=== PATIENT | male | born 1950 | race Caucasian/White ===

== ENCOUNTER 2022-12-15 02:49 | Emergency (ER) | payer MEDICARE, SELFPAY ==
[2022-12-15 02:50] VITALS: BP 146/75; PULSE 57; RESP 16; TEMP 36.6; O2SAT 94; BMI 30.7
--- NOTE | 2022-12-15 03:05 | PC.NURSE ---
Patient to ED by EMS after having left lower abdominal and groin pain that started yesterday morning. The pain eased some yesterday, but tonight he got up to use the bathroom and the pain returned, it was so bad that he did not think he would be able to make it to the car to come to the ED, so EMS was called. He denies any urinary symptoms, initially denied any strenuous activity prior to the pain starting, but then stated that he was moving things and putting them away for the winter, also throwing bails of hay over a fence. He was given 25mcg of Fentanyl en route which only minimally helped his pain. He is still rating pain a 9/10 in the left groin
--- NOTE | 2022-12-15 03:15 | ED.ABDPAIN1 ---
HPI - Abdominal Pain General Chief Complaint: Abdominal Pain Stated Complaint: ABD PAIN Time Seen by Provider: 12/15/22 02:58 Source: patient and family () Mode of arrival: ambulance History of Present Illness HPI narrative: This 72-year-old male is brought to the emergency department by EMS accompanied by his . The patient's states that he started complaining of some left inguinal area pain yesterday during the day. It waxed and waned during the day and became worse at night. The patient went to bed and awakened his to call EMS. She states that he was too nauseated to come down the stairs for her to bring him to the hospital herself. The patient does have a history of diabetes, hypertension, hypercholesterolemia. He denies any heavy lifting or strenuous activity although reported to the nurse doing his intake that he was throwing kvng of hay into the forearm villalobos yesterday morning. He denies a history of kidney stones. He does have low back pain but states that this is chronic in nature. He denies any chest pain or shortness of breath. He has not had a fever. He denies any urinary frequency urgency or dysuria. He has pain in the left inguinal region that is worse with movement of the left leg. He has no specific leg pain. He has no calf pain or swelling. He denies any generalized abdominal pain, vomiting or diarrhea. He received 25 mcg of fentanyl by EMS with mild improvement of his pain. Related Data Allergies Allergy/AdvReac Type Severity Reaction Status Date / Time No Known Drug Allergies Allergy Verified 12/15/22 02:54 Review of Systems ROS Status of ROS 10 or more systems reviewed and unremarkable except as noted in history and below Exam Narrative Exam Narrative: Nurses note and vital signs reviewed and patient is borderline hypoxic with pulse ox of 94% on RA and has elevated blood pressure at 14/75 with mils bradycardia at 57bpm General: The patient appears well and in no apparent distress. Patient is resting comfortably on cart. Skin: Warm, dry, no pallor noted. There is no rash noted. Head: Normocephalic, atraumatic Eye: Normal conjunctiva, no drainage, EOMI. PERRL Ears, Nose, Mouth, and Throat: oral mucosa is moist. Cardiovascular: Regular Rate and Rhythm S1S2, no murmurs, rubs or gallops appreciated. radial, brachial, femoral and dorsalis pedis pulses are brisk and equal bilaterally Respiratory: Patient is in no distress, scattered expiratory wheezing noted in all lung villalobos, no rhonchi or rales appreciated Back: non-tender, no CVA tenderness bilaterally to percussion. GI: Normal bowel sounds, tenderness to palpation in right inguinal region without palpable hernia, pulsatile mass or other notable abnormality, pain increased with sitting up and flexion of left knee- at which point, I feel a small bulge that may be consistent with an inguinal hernia. - normal genital exam without skin breakdown or signs of necrotizing fascititis Musculoskeletal: The patient has no evidence of calf tenderness, no pitting edema, symmetrical pulses noted bilaterally Neurological: A&O x4, normal speech Psychiatric: Cooperative Constitutional Vital Signs, click to edit/add: Last Vital Signs Temp 97.9 F 12/15/22 02:50 Pulse 57 L 12/15/22 02:50 Resp 16 12/15/22 02:50 BP 146/75 H 12/15/22 02:50 Pulse Ox 94 L 12/15/22 02:50 O2 Del Method Room Air 12/15/22 02:50 Course Vital Signs Vital signs: Vital Signs Temperature 97.9 F 12/15/22 02:50 Pulse Rate 57 L 12/15/22 02:50 Respiratory Rate 16 12/15/22 02:50 Blood Pressure 146/75 H 12/15/22 02:50 Pulse Oximetry 94 L 12/15/22 02:50 Oxygen Delivery Method Room Air 12/15/22 02:50 Temperature 97.9 F 12/15/22 02:50 Pulse Rate 57 L 12/15/22 02:50 Respiratory Rate 16 12/15/22 02:50 Blood Pressure 146/75 H 12/15/22 02:50 Pulse Oximetry 94 L 12/15/22 02:50 Oxygen Delivery Method Room Air 12/15/22 02:50 MDM - Abdominal Pain MDM Narrative Medical decision making narrative: 72-year-old male with a history of chronic low back pain who has had back surgery in the past and has been recently exposed rinsing increasing back pain is brought to the emergency department by EMS accompanied by his for evaluation of left inguinal area pain. The pain is made worse by movement of his left leg or by sitting up. The pain started yesterday during the day. He did report to the nurse during his intake that he was throwing kvng of hay around yesterday morning. The pain was waxing and waning throughout the day then became worse at night associated with nausea. He denies any urinary symptoms and does not have a history of kidney stones. He denies any chest pain or shortness of breath. He does have a history of hypertension, diabetes and is a tobacco user. His femoral pulses were brisk and equal bilaterally, he also had equal dorsalis pedis pulses and no abdominal bruits or other concerns for aortic dissection. He had been given fentanyl by EMS prior to arrival with mild clinical improvement such that he was able to participate in the physical exam. He had tenderness in the inguinal area which was made worse with movement of the leg or sitting up. Abdomen is soft and nondistended. He was medicated with a milligram of Dilaudid and Zofran and IV fluids. EKG done upon arrival is a sinus bradycardia at 51 bpm. Routine labs are reviewed. He is a normal white count and hemoglobin. He has a normal lactic acid, normal d-dimer, normal troponin. Electrolytes are normal with the exception of a mildly elevated glucose. Urinalysis was negative for acute findings. CT scan Of the abdomen and pelvis with IV contrast was ordered and is included in the body of this report. It shows mild constipation and degenerative changes in the lumbar spine with diverticulosis but no acute diverticulitis, atherosclerosis but no aneurysm or dissection. The results of the labs, EKG and CT scan were discussed with the patient and his . He has had episodes of sciatica in the past and at this point I suspect that his pain is radicular in nature from his lumbar spine. This would account for the worsening pain with movement of sitting up and when he flexes his knee and hip. I did review his [facility] report and it shows no recent activity. He will be discharged home with Rx for Percocet, Parafon forte for muscle spasm and colace. He will follow up with his PCP, he may benefit from an MRi to further evaluate his lumbar region. Medical Records Medical records narrative: The [address] [address] [address] Scan Report Draft Patient: Felisa Noble MR#: [id number] : 1950 Acct:[id number] Age/Sex: 72 / M ADM Date: 12/15/22 Loc: ER Attending Dr: Ordering Physician: Esther Greene Date of Service: 12/15/22 Procedure(s): CT abdomen pelvis w con Accession Number(s): [id number] cc: ~ [address] [address] Patient Name: FELISA NOBLE MRN: [id number] date: 1950 Sex: M Assigned Patient Location: ER Current Patient Location: ER Accession/Order Number: [id number] Exam Date: 12/15/2022 04:14 Report Date: 12/15/2022 05:32 At the request of: ESTHER GREENE Procedure: CT abdomen pelvis w con EXAM: CT abdomen pelvis w con HISTORY: LLQ abd pain. COMPARISON: None. TECHNIQUE: Images of the abdomen and pelvis obtained without contrast. FINDINGS: Lung bases are clear. No pleural or pericardial fluid. There is no evidence of adrenal mass or retroperitoneal lymphadenopathy. No obstructive uropathy. Renal enhancement is symmetrical. There are renal cysts incidentally noted bilaterally. Liver is fatty infiltrated. Portal vein is patent. Aortic atherosclerosis without aneurysm. There is no bowel obstruction or inflammation. No pneumatosis or pneumoperitoneum. The appendix is normal. There is no pelvic adenopathy or ascites. Prostate and bladder are age-appropriate. Severe sigmoid diverticulosis. There is a moderate volume of formed stool throughout the colon. No acute bony abnormality. Severe multilevel lumbar degenerative disc disease and facet arthropathy. Previous decompressive laminectomy between L3 and L5. CT/CT abdomen pelvis w con IMPRESSION: 1. Constipation may be present depending on clinical scenario. No evidence of bowel obstruction. 2. No additional acute abnormality in the abdomen/pelvis. 3. Chronic findings including aortic atherosclerosis and severe sigmoid diverticulosis. 4. Severe lumbar degenerative changes. Electronically authenticated by: ACACIA HALL Date: 12/15/2022 05:32 Lab Data Labs: Lab Results 12/15/22 12/15/22 Range/Units 03:10 05:25 WBC 7.1 (4.0-11.0) 10^3/uL RBC 5.43 (4.70-6.10) 10^6/uL Hgb 15.7 (14.0-18.0) g/dL Hct 48.3 (42.0-54.0) % MCV 89.0 (80.0-94.0) fL MCH 28.9 (25.9-34.0) pg MCHC 32.5 (29.9-35.2) g/dL RDW 13.8 (11.0-15.0) % Plt Count 153 (150-450) 10^3/uL MPV 11.2 (9.5-13.5) fL Neut % (Auto) 71.6 (43.0-75.0) % Lymph % (Auto) 17.0 L (20.5-60.0) % [place] % (Auto) 7.9 (1.7-12.0) % Eos % (Auto) 2.8 (0.9-7.0) % Baso % (Auto) 0.4 (0.2-2.0) % Neut # (Auto) 5.1 (1.4-6.5) 10^3/uL Lymph # (Auto) 1.2 (1.2-3.8) 10^3/uL [place] # (Auto) 0.6 (0.3-0.8) 10^3/uL Eos # (Auto) 0.2 (0.0-0.7) 10^3/uL Baso # (Auto) 0.0 (0.0-0.1) 10^3/uL Abs Immat Gran (auto) 0.02 (0.00-0.03) 10^3/uL Imm/Tot Granulo (auto) 0.3 (0.0-0.5) % D-Dimer 0.33 (<=0.59) mg/L FEU Sodium 134 L (136-145) mmol/L Potassium 3.8 (3.5-5.1) mmol/L Chloride 101 (98-107) mmol/L Carbon Dioxide 26.1 (21.0-32.0) mmol/L Anion Gap 10.7 BUN 19.0 H (7.0-18.0) mg/dL Creatinine 1.04 (0.70-1.30) mg/dL Est GFR ( Amer) >60 (>=60) Est GFR (Non-Af Amer) >60 (>=60) BUN/Creatinine Ratio 18.3 Glucose 166 H (74-106) mg/dL Lactate 2.0 (0.4-2.0) mmol/L Calcium 8.9 (8.5-10.1) mg/dL Total Bilirubin 0.8 (0.2-1.0) mg/dL AST 17 (15-37) U/L ALT 35 (16-63) U/L Alkaline Phosphatase 70 (46-116) U/L Troponin I High Sens 21.5 (4.0-76.1) pg/mL Total Protein 7.2 (6.4-8.2) g/dL Albumin 3.9 (3.4-5.0) g/dL Globulin 3.3 g/dL Albumin/Globulin Ratio 1.2 Urine Color Lt. yellow (YELLOW) Urine Clarity Clear (CLEAR) Urine pH 5.5 (5.0-9.0) Ur Specific [place] 1.010 (1.005-1.025) Urine Protein Negative (NEG/TRACE) mg/dL Urine Glucose (UA) >=1000 A (NEGATIVE) mg/dL Urine Ketones Negative (NEGATIVE) mg/dL Urine Occult Blood Negative (NEGATIVE) Urine Nitrite Negative (NEGATIVE) Urine Bilirubin Negative (NEGATIVE) Urine Urobilinogen 0.2 (0.2-1.0) EU/dL Ur Leukocyte Esterase Negative (NEGATIVE) Urine RBC 0-2 (0-2) #/HPF Urine WBC 0-2 A (NONE SEEN) #/HPF Ur Squamous Epith Cells Rare (NONE/RARE) #/LPF Urine Crystals None seen (None Seen) #/HPF Urine Bacteria Trace A (NONE SEEN) #/HPF Urine Casts None seen (NONE SEEN) #/LPF Urine Mucus None seen (NONE SEEN) Discharge Plan Discharge Chief Complaint: Abdominal Pain Clinical Impression: Left lumbar radiculopathy Patient Disposition: Home, Self-Care Time of Disposition Decision: 06:11 Condition: Good Instructions: Lumbar Radiculopathy (ED), Back Pain (ED) Stand Alone Forms: Portal Instructions Referrals: ASHLEY CROWLEY [Primary Care Provider] - 1 week
--- NOTE | 2022-12-15 03:16 | ECG_ITS ---
The [facility] Test Date: 2022-12-15 Pat Name: Girma Chowdhury Department: Room: - Gender: Male Public Address Announcer: : 1950 Requested By: [id number] Order Number: [id number] Reading MD: BRDOIE PHIPPS Measurements Intervals [place] Rate: 51 P: 68 SC: 188 QRS: 76 QRSD: 110 T: 61 QT: 460 QTc: 436 Interpretive Statements 1100 Sinus rhythm 9110 normal ECG No previous ECG available for comparison Electronically Signed On 12-15-2022 7:05:32 EDT by BRODIE PHIPPS
[2022-12-15] MEDS: 0.9 % SODIUM CHLORIDE 1,000 ML 125 ML IV (03:32)
[2022-12-15] MEDS: HYDROMORPHONE HCL 2 MG/ML VIAL 1 MG IV (03:32)
[2022-12-15] MEDS: ONDANSETRON PF 4 MG/2 ML VIAL IV (03:33)
[2022-12-15 03:35] LABS: Basophils Percent Auto 0.4 % (0.2-2.0); Eosinophils Absolute Auto 0.2 10^3/uL (0.0-0.7); Eosinophils Percent Auto 2.8 % (0.9-7.0); Hematocrit 48.3 % (42.0-54.0); Hemoglobin 15.7 g/dL (14.0-18.0); Immature Granulocytes Abs Auto 0.02 10^3/uL (0.00-0.03); Immature Granulocytes Pct Auto 0.3 % (0.0-0.5); Lymphocytes Absolute Auto 1.2 10^3/uL (1.2-3.8); Mean Corpuscular HGB Conc 32.5 g/dL (29.9-35.2); Mean Corpuscular Hemoglobin 28.9 pg (25.9-34.0); Mean Platelet Volume 11.2 fL (9.5-13.5); Monocytes Absolute Auto 0.6 10^3/uL (0.3-0.8); Monocytes Percent Auto 7.9 % (1.7-12.0); Neutrophils Absolute Auto 5.1 10^3/uL (1.4-6.5); Neutrophils Percent Auto 71.6 % (43.0-75.0); Platelet Count 153 10^3/uL (150-450); Red Blood Count 5.43 10^6/uL (4.70-6.10); Red Cell Distribution Width 13.8 % (11.0-15.0); White Blood Count 7.1 10^3/uL (4.0-11.0)
[2022-12-15 03:40] LABS: D Dimer 0.33 mg/L FEU (<=0.59)
[2022-12-15 03:47] VITALS: PULSE 51
[2022-12-15 03:47] LABS: Alanine Aminotransferase 35 U/L (16-63); Albumin Globulin Ratio 1.2; Albumin Level 3.9 g/dL (3.4-5.0); Alkaline Phosphatase 70 U/L (46-116); Anion Gap 10.7; Aspartate Amino Transferase 17 U/L (15-37); BUN Creatinine Ratio 18.3; Bilirubin Total 0.8 mg/dL (0.2-1.0); Calcium 8.9 mg/dL (8.5-10.1); Carbon Dioxide 26.1 mmol/L (21.0-32.0); Chloride 101 mmol/L (98-107); Estimated GFR (African America >60 (>=60); Estimated GFR (Non-African Ame >60 (>=60); Globulin 3.3 g/dL; Glucose 166 mg/dL (74-106); Potassium 3.8 mmol/L (3.5-5.1); Sodium 134 mmol/L (136-145); Total Protein 7.2 g/dL (6.4-8.2)
[2022-12-15 03:50] LABS: Troponin I High Sensitivity 21.5 pg/mL (4.0-76.1)
--- NOTE | 2022-12-15 04:01 | CT_ITS ---
The [address] [address] Patient Name: FELISA NOBLE MRN: [id number] date: 1950 Sex: M Assigned Patient Location: ER Current Patient Location: ER Accession/Order Number: [id number] Exam Date: 12/15/2022 04:14 Report Date: 12/15/2022 05:55 At the request of: DESIRAE MARKER Procedure: CT abdomen pelvis w con EXAM: CT abdomen pelvis w con HISTORY: LLQ abd pain. COMPARISON: None. TECHNIQUE: Images of the abdomen and pelvis obtained without contrast. FINDINGS: Lung bases are clear. No pleural or pericardial fluid. There is no evidence of adrenal mass or retroperitoneal lymphadenopathy. No obstructive uropathy. Renal enhancement is symmetrical. There are renal cysts incidentally noted bilaterally. Liver is fatty infiltrated. Portal vein is patent. Aortic atherosclerosis without aneurysm. There is no bowel obstruction or inflammation. No pneumatosis or pneumoperitoneum. The appendix is normal. There is no pelvic adenopathy or ascites. Prostate and bladder are age-appropriate. Severe sigmoid diverticulosis. There is a moderate volume of formed stool throughout the colon. No acute bony abnormality. Severe multilevel lumbar degenerative disc disease and facet arthropathy. Previous decompressive laminectomy between L3 and L5. CT/CT abdomen pelvis w con IMPRESSION: 1. Constipation may be present depending on clinical scenario. No evidence of bowel obstruction. 2. No additional acute abnormality in the abdomen/pelvis. 3. Chronic findings including aortic atherosclerosis and severe sigmoid diverticulosis. 4. Severe lumbar degenerative changes. Electronically authenticated by: ACACIA HALL Date: 12/15/2022 05:55
[2022-12-15 05:33] LABS: Bilirubin Urine NEGATIVE (NEGATIVE); Blood Urine NEGATIVE (NEGATIVE); Clarity Urine CLEAR (CLEAR); Color Urine LT. YELLOW (YELLOW); Glucose Urine UA >=1000 mg/dL (NEGATIVE); Ketones Urine NEGATIVE (NEGATIVE); Leukocyte Esterase Urine NEGATIVE (NEGATIVE); Nitrite Urine NEGATIVE (NEGATIVE); Protein Urine NEGATIVE (NEG/TRACE); Urobilinogen Urine 0.2 EU/dL (0.2-1.0); pH Urine 5.5 (5.0-9.0)
[2022-12-15 05:43] LABS: Bacteria Urine TRACE #/HPF (NONE SEEN); Crystals Seen? None Seen #/HPF (None Seen); Mucus Urine NONE SEEN (NONE SEEN); RBC Urine 0-2 #/HPF (0-2); Squamous Epithelial Cell Urine RARE #/LPF (NONE/RARE); WBC Urine 0-2 #/HPF (NONE SEEN)
[2022-12-15 05:44] LABS: Cast Seen? NONE SEEN #/LPF (NONE SEEN)
[2022-12-15] MEDS: KETOROLAC TROMETHAMINE 30 MG/ML VIAL IVP (06:43)
[2022-12-15] MEDS: OXYCODONE HCL/ACETAMINOPHEN 5MG/325MG 2 TAB PO (06:44)
== END 2022-12-15 06:57 | disposition home or self-care (01) ==
PROVIDERS: Emergency Provider Emergency Medicine; PCP Family Medicine
DX: M47.26 Other spondylosis with radiculopathy, lumbar region (principal); I10 Essential (primary) hypertension; E78.00 Pure hypercholesterolemia, unspecified; E11.65 Type 2 diabetes mellitus with hyperglycemia; K57.30 Diverticulosis of large intestine without perforation or abscess without bleeding; M54.50 Low back pain, unspecified; G89.29 Other chronic pain; R00.1 Bradycardia, unspecified; F17.210 Nicotine dependence, cigarettes, uncomplicated
CPT/HCPCS: 36415; 74177; 80053; 81001; 83605; 84484; 85025; 85378; 93005; 96374; 96375; 99285; J1170; Q9967

== ENCOUNTER 2023-08-14 10:00 | Emergency (ER) | payer MEDICARE, SELFPAY ==
--- OUTSIDE RECORDS SUMMARY | 2023-08-14 10:09 | XMS_ITS | CCD ---
Author Organization [facility] CliniSyal Care Team Providers Care Seafood Clerk Name Role Phone CARLINE, DR LUND Admitting Unavailable PETZNICK, DR LUND Attending Unavailable PETZNICK, DR LUND Consulting Unavailable PETZNICK, DR LUND Attending Unavailable PETZNICK, DR LUND Consulting Unavailable PETZNICK, DR LUND Admitting Unavailable Petznick DO Leonora M Unavailable Petznick DO Leonora M Primary Care Provider PETZNICK, LEONORA M Attending Unavailable PETZNICK, LEONORA M Referring Unavailable PETZNICK, LEONORA M Referring Unavailable RIGOBERTO, SARTHAK Attending Unavailable PETZNICK, LEONORA M Referring Unavailable RIGOBERTO, SARTHAK Attending Unavailable PETZNICK, LEONORA M Referring Unavailable RIGOBERTO, SARTHAK Attending Unavailable PETZNICK, LEONORA M Referring Unavailable RIGOBERTO, SARTHAK Attending Unavailable PETZNICK, LEONORA M Referring Unavailable RIGOBERTO, SARTHAK Attending Unavailable PETZNICK, LEONORA M Referring Unavailable RIGOBERTO, SARTHAK Attending Unavailable PETZNICK, LEONORA M Referring Unavailable RIGOBERTO, SARTHAK Attending Unavailable PETZNICK, LEONORA M Referring Unavailable RIGOBERTO, SARTHAK Attending Unavailable PETZNICK, LEONORA M Referring Unavailable RIGOBERTO, SARTHAK Attending Unavailable PETZNICK, LEONORA M Referring Unavailable RIGOBERTO, SARTHAK Attending Unavailable PETZNICK, LEONORA M Referring Unavailable RIGOBERTO, SARTHAK Attending Unavailable PETZNICK, LEONORA M Referring Unavailable RIGOBERTO, SARTHAK Attending Unavailable PETZNICK, LEONORA M Referring Unavailable YORDY SMILEY Attending Unavailable YORDY SMILEY Referring Unavailable PETZNICK, LEONORA M Attending Unavailable Medications Current Medications Medication Drug Class(es) Dates Sig (Normalized) Sig (Original) aspirin 81 mg delayed release oral tablet (3 sources) Platelet Aggregation Inhibitor, Nonsteroidal Anti-inflammatory Drug take 1 tablet by mouth in the morning aspirin 81 MG EC tablet Take 81 mg by mouth in the morning. 0 Active diphenhydrAMINE hydrochloride 25 mg / naproxen sodium 220 mg oral tablet (3 sources) Histamine-1 Receptor Antagonist, Nonsteroidal Anti-inflammatory Drug Naproxen Sod-diphenhydrAMINE (Aleve PM) 220-25 MG tablet empagliflozin 25 mg oral tablet (3 sources) Sodium-Glucose Cotransporter 2 Inhibitor Start: 3 take 1 tablet by mouth once daily empagliflozin (Jardiance) 25 MG Indications: Type 2 diabetes mellitus without complication, unspecified whether long-term insulin use (CMS/HCC) Take 1 tablet by mouth once daily 30 tablet 2 09/22/2022 Active lisinopril 20 mg oral tablet (3 sources) Angiotensin Converting Enzyme Inhibitor Start: 3 take 1 tablet by mouth in the morning lisinopril 20 MG tablet Indications: Essential hypertension (CMS/HCC) Take 1 tablet (20 mg) by mouth in the morning. 0 02/10/2023 Active lovastatin 40 mg oral tablet (3 sources) HMG-CoA Reductase Inhibitor Start: 3 take 1 tablet by mouth at bedtime lovastatin (Mevacor) 40 MG tablet Indications: Pure hypercholesterolemia (CMS/HCC) Take 1 tablet (40 mg) by mouth at bedtime 0 02/10/2023 Active metFORMIN hydrochloride 1000 mg oral tablet (3 sources) Biguanide Start: 3 End: 4 take 1 tablet by mouth once metFORMIN (Glucophage) 1000 MG tablet Indications: Type 2 diabetes mellitus without complication, without long-term current use of insulin (CMS/[facility]) Take 1 tablet (1,000 mg) by mouth every 12 (twelve) hours. 180 tablet 3 08/10/2022 08/10/2023 Active 24 hr rOPINIRole 4 mg extended release oral tablet (3 sources) Nonergot Dopamine Agonist Start: 3 take 1 tablet by mouth every twenty-four hours at bedtime rOPINIRole XL (Requip XL) 4 MG 24 hr tablet Indications: Restless leg Take 1 tablet (4 mg) by mouth at bedtime. 90 tablet 3 08/10/2022 Active Problems Active Problems Problem Classification Problem Date Documented Date Episodic/Chronic Acquired foot deformities (6 sources) Acquired hallux rigidus; Translations: [Hallux rigidus, unspecified foot] Onset: 01-16-2018 08-10-2022 Chronic Diabetes mellitus with complications (3 sources) Type 2 diabetes mellitus; Translations: [Type 2 diabetes mellitus with other diabetic kidney complication] Onset: 01-24-2015 02-15-2023 Chronic Disorders of lipid metabolism (3 sources) Pure hypercholesterolemia; Translations: [Pure hypercholesterolemia, unspecified] Onset: 01-24-2015 08-10-2022 Chronic Essential hypertension (3 sources) Essential hypertension; Translations: [Essential (primary) hypertension] Onset: 01-24-2015 08-10-2022 Chronic Osteoarthritis (9 sources) Arthritis of right acromioclavicular joint; Translations: [Primary osteoarthritis, right shoulder] Onset: 01-25-2015 Resolved: 08-10-2022 08-10-2022 Chronic Other hereditary and degenerative nervous system conditions (3 sources) Restless legs; Translations: [Restless legs syndrome] Onset: 01-24-2015 08-10-2022 Chronic Residual codes; unclassified (4 sources) Obstructive sleep apnea (adult) (pediatric); Translations: [OBSTRUCTIVE SLEEP APNEA] Onset: 01-27-2022 Chronic Spondylosis; intervertebral disc disorders; other back problems (3 sources) Degeneration of lumbar intervertebral disc; Translations: [Other intervertebral disc degeneration, lumbar region] Onset: 03-20-2019 08-10-2022 Chronic Spondylosis; intervertebral disc disorders; other back problems (19 sources) Spinal stenosis of lumbar region; Translations: [Spinal stenosis, lumbar region without neurogenic claudication] Onset: 01-25-2015 Resolved: 08-10-2022 08-10-2022 Episodic Past or Other Problems Problem Classification Problem Date Documented Da te Episodic/Chronic Other connective tissue disease (3 sources) Nontraumatic complete rupture of rotator cuff of left shoulder; Translations: [Complete rotator cuff tear or rupture of left shoulder, not specified as traumatic] Onset: 08-10-2022 08-10-2022 Episodic Other connective tissue disease (3 sources) Tear of left rotator cuff; Translations: [Unspecified rotator cuff tear or rupture of left shoulder, not specified as traumatic] Onset: 08-10-2022 Resolved: 08-10-2022 08-10-2022 Episodic Other diseases of kidney and ureters (3 sources) Cyst of kidney; Translations: [Cyst of kidney, acquired] Onset: 01-25-2018 08-10-2022 Episodic Results Test Name Value Interpretation Reference Range Facil ity XR FOREARM 2 VIEWS RIGHTon 0 08-11-2023 XR FOREARM 2 VIEWS RIGHT FINDINGS: No fracture within the radius or ulna. Please see wrist report. Several millimeter calcification posterior lower arm, supracondylar region likely corresponds to the triceps musculotendinous junction. Comminuted bone fragments localized to the olecranon status post internal fixation fusion with residual orthopedic anchor. Intact radial head and neck. IMPRESSION: 1. No fracture. 2. Postsurgical changes, remote olecranon fracture, no residual deformity. TRANSCRIBED BY: ELECTRONICALLY SIGNED BY: Caio Andersen MD Normal Not Available XR WRIST 3+ VIEWS RIGHTon XR WRIST 3+ VIEWS RIGHT FINDINGS: Generalized wrist soft tissue swelling. Mild to moderate first carpometacarpal, scaphoid trapezium/trapezoid arthritic changes. Approximate 1.0 cm lytic area occupies the entire scaphoid head, no depression of the articular surface with the scaphotrapezium joint, nonaggressive appearance. No acute fracture. Relative normal carpal bone alignment. IMPRESSION: 1. Generalized wrist soft tissue swelling, arthritic changes, no fracture. 2. Scaphoid head findings, nonaggressive, nonacute, questional significance given this history. As clinically indicated MRI as tolerated by the patient may be of assistance. TRANSCRIBED BY: ELECTRONICALLY SIGNED BY: Caio Andersen MD Normal Not Available XR LUMBAR SPINE COMPLETE 4+ VIEWSon 02-10-2023 XR LUMBAR SPINE COMPLETE 4+ VIEWS CLINICAL HISTORY: Low back pain COMPARISON: NONE FINDINGS: Status post L3-S1 posterior decompression. There is no acute fracture or subluxation. There is no loss of vertebral body height. There is straightening of the lordotic curvature of the lumbar spine. There is grade 1 anterolisthesis of L3 on L4. There is severe intervertebral disc space narrowing at L3-4 and L4-5 with moderate narrowing at the remaining levels. The SI joints are symmetric. IMPRESSION: Impression: There is severe multilevel spondylosis of the lumbar spine. ELECTRONICALLY SIGNED BY: Steve Milton MD Normal Not Available XR SACROILIAC JOINTS 3+ VIEW Son 02-10-2023 XR SACROILIAC JOINTS 3+ VIEWS CLINICAL HISTORY: Low back pain COMPARISON: NONE. SI joints FINDINGS: Limited due to positioning. There are no lytic or sclerotic bone lesions. The femoral heads are located. There is no joint space narrowing. There is no acute fracture or subluxation. The soft tissues are within normal limits, there are no radiopaque foreign bodies.. IMPRESSION: Impression: There are no acute osseous changes. ELECTRONICALLY SIGNED BY: Steve Milton MD Normal Not Available MRI Shoulder w/o Lefton 03-18 MRI Shoulder w/o Left HISTORY: Left shoulder pain. Recent pulling type injury with popping sensation. TECHNIQUE: Routine non-contrast MRI of the shoulder , left side COMPARISON: None RESULT: Significant limitations from motion. Within these limits: Rotator Cuff Tendons: Full-thickness tearing involving essentially entire supraspinatus with medial retraction of the torn fibers to near the acromion, with underlying tendinosis. Mild to moderate tendinosis involving infraspinatus and subscapularis, with reactive cystic changes at the insertions, without distinct tear within limits of motion. Teres minor appears intact. Long Head Biceps Tendon: Intra-articular tendinosis with high-grade partial-thickness tearing, without distinct complete tear. Muscle: Muscle bulk and signal intensity are grossly within normal limits. Labrum: 1.5 cm paralabral cyst with associated tear adjacent to the posterior inferior labrum. Other areas of diffuse fraying/tearing. Bones and Marrow: No evidence of fracture or bone marrow replacing process. Glenohumeral Joint: Osteophytes without distinct full-thickness chondral defect within limits of motion. Small joint effusion. Acromioclavicular Joint: Mild to moderate degenerative changes. Other: Fluid extending into the subacromial subdeltoid bursa. IMPRESSION: Full-thickness rotator cuff tearing involving essentially entire supraspinatus. Intra-articular tendinosis with high-grade partial-thickness tearing involving the long head biceps tendon, without distinct complete tear within limits of motion. Diffuse labral fraying/tearing including tearing involving the posterior inferior labrum and adjacent paralabral cyst. Report reported and signed by Saleem Jordan on 04/13/2022 1435 Normal [facility] Specialist Reminderson 03-01-2019 Reminders - From: Lizeth Gee MA To: [facility] - Clinical; Sent: 02/09/2019 15:13:59 EST Show up: 02/23/2019 07:00:00 EST Subject: scheduled Renal US Due Date/Time: 03/02/2019 07:00:00 EST Reminder/Recall Pt is scheduled for Renal US on 02/19/19 @[facility]. He does have a f/u scheduled 03/05/19 to review w/RWR. Renal US is now being done at [facility] on 02/26/19 @10am. No results in chart yet From: Miky OVIEDO, Mark Bernstein ([facility] - Clinical) To: Felisa MORRISON MD; Sent: 03/01/2019 11:12:29 EST Show up: 03/01/2019 11:12:00 EST Subject: RE: scheduled Renal US Please review Renal US done 02/26/2019 [facility] XR hip BI w [id number] 07-04-19 XR hip BI w [id number] [facility] [place] [address] [place] [address] XRay Report Signed Patient: Felisa Chowdhury JR MR#: [id number] : 1950 Acct:[id number] Age/Sex: 67 / M ADM Date: 07/03/18 Loc: [facility] Room: Type: [facility] Attending Dr: Leonora Crowley DO Ordering Provider: Leonora Crowley DO Date of Service: 07/03/18 XR/XR lumbar spine 2-3V*: [id number] ([id number]) XR/XR hip BI w PEL1V: [id number], [id number] ([id number]) XR/XR knee BI 3V: [id number], [id number] Copies to: Leonora Crowley DO CLINICAL DATA: Low back pain radiating to the right hip and down the leg. Bilateral knee pain and difficulty ambulating. No injury. LUMBAR SPINE - 3 views COMPARISON: None AP, lateral lumbar and lumbosacral views were obtained. There is slight levoscoliosis. No fractures are identified. There is minor retrolisthesis of L1 on L2 and L3 on L4. There is multilevel disc space narrowing, greatest at L4-5 and the lumbosacral junction. There are large endplate spurs and facet disease, greater distally. There is mild sclerosis at the SI joints. No paraspinal soft tissue abnormalities are present. XR/XR lumbar spine 2-3V* IMPRESSION: SUBTLE SCOLIOSIS. DEGENERATIVE CHANGES, GREATER DISTALLY. ADULT PELVIS WITH BILATERAL HIPS - 5 views COMPARISON: None AP view of the pelvis as well as AP and frog-lateral views of both hips were obtained. No fracture, dislocation or bony destruction is seen. The hip joint spaces are symmetric. There is no significant arthritic change at the hips. Enthesophytes are present at the iliac crests, trochanters and ischial tuberosities. There is mild SI joint sclerosis. The soft tissues are unremarkable. IMPRESSION: NO ACUTE PLAIN FILM FINDINGS. BILATERAL KNEES - 3 views each COMPARISON: None Standing AP, lateral and patellar views were obtained. No fractures or dislocation are noted. There is suggestion of genu valgus deformity. There is moderate narrowing of the medial tibiofemoral joint compartments bilaterally. There is tricompartment marginal spurring, greater medially and at the medial patellar femoral joints. There are enthesophytes at the insertions of the patellar tendons. There are small to moderate size knee effusions. IMPRESSION: MODERATE DEGENERATIVE CHANGES. Impression dictated by: Tejal Moncada M.D.07/03/2018 3:15 PM Dictation Location: [facility] Transcribed By: [facility] 07/03/18 1515 Dictated By: Tejal Moncada MD 07/03/18 1508 Signed By: 07/03/18 1515 [facility] Encounters Encounter Date Encounter Type Care Provider Facility Start: 08-12-2023 End: 08-12-2023 ambulatory LEONORA CROWLEY Not Available Start: 08-11-2023 End: 08-11-2023 ambulatory YORDY SMILEY Not Available Start: 03-25-2023 End: 03-25-2023 ambulatory SARTHAK FRANKLIN Not Available Start: 03-22-2023 End: 03-22-2023 ambulatory Sarthak Franklin PT [facility] Comment on above: Spinal stenosis of l umbar region at multiple levels (Primary Dx); SI (sacroiliac) pain Start: 03-18-2023 Bamboo flowsheet Sarthak Rigoberto PT [facility] Start: 03-18-2023 Bamboo flowsheet Sarthak [place] PT [facility] Start: 03-18-2023 End: 03-18-2023 ambulatory Sarthak [place] PT [facility] Comment on above: Spinal stenosis of l umbar region at multiple levels (Primary Dx); SI (sacroiliac) pain Start: 03-15-2023 End: 03-15-2023 ambulatory SARTHAK RIGOBERTO Not Available Start: 03-11-2023 End: 03-11-2023 ambulatory SARTHAK RIGOBERTO Not Available Start: 03-08-2023 End: 03-08-2023 ambulatory SARTHAK RIGOBERTO Not Available Start: 03-04-2023 End: 03-04-2023 ambulatory SARTHAK RIGOBERTO Not Available Start: 03-01-2023 End: 03-01-2023 ambulatory SARTHAK RIGOBERTO Not Available Start: 02-25-2023 End: 02-25-2023 ambulatory SARTHAK RIGOBERTO Not Available Start: 02-22-2023 End: 02-22-2023 ambulatory SARTHAK RIGOBERTO Not Available Start: 02-18-2023 End: 02-18-2023 ambulatory SARTHAK RIGOBERTO Not Available Start: 02-16-2023 End: 02-16-2023 ambulatory SARTHAK RIGOBERTO Not Available Start: 02-10-2023 End: 02-10-2023 ambulatory LEONORA CROWLEY Not Available Start: 01-27-2022 End: 01-28-[address] LEONORA CROWLEY Facility:[facility] Start: 01-12-2022 End: 01-13-[address] LEONORA CROWLEY Facility:[facility] Procedures Date Procedure Procedure Detail Performing Clinician Start: 08-31-2017 Colonoscopy Sarthak Vasquez ow PT Plan of Treatment Date Care Activity Detail Author Start: 09-01-2027 Screening for malign ant neoplasm of colon [facility] Start: 02-12-2024 Urine screening for protein Diabetes: Urine Protein Screening [facility] Start: 08-12-2023 End: 08-12-2023 Patient encounter procedure 08/12/2023 8:15 AM EDT Office Visit [facility] [address] [place] [address] Leonora Crowley DO [address] [place] [address] [facility] [address] Start: 08-11-2023 Medicare Annual Well ness (AWV) Medicare Annual Wellness (AWV) [facility] Start: 05-12-2023 Hemoglobin A1c measurement Diabetes: Hemoglobin A1C [facility] Start: 03-25-2023 End: 03-25-2023 ambulatory 03/25/2023 7:00 AM EST Treatment [facility] [address] [place] [address] [facility]ak Franklin[facility] Start: 03-22-2023 End: 03-22-2023 ambulatory 03/22/2023 7:00 AM EST Treatment [facility] [address] [place] [address] [facility]arthak Franklin, [facility] Start: 03-18-2023 End: 03-18-2023 ambulatory 03/18/2023 7:00 AM EST Treatment [facility] [address] [place] [address] Sarthak Franklin, PT Spinal stenosis of lumbar region at multiple levels (Primary Dx); SI (sacroiliac) pain [facility] Comment on above: Spinal stenosis of l umbar region at multiple levels (Primary Dx); SI (sacroiliac) pain Start: 10-15-2022 Influenza vaccination Influenza Vacc ine (#1) [facility] Start: 1962 Glaucoma screening Diabetes: R etinopathy Screening [facility] Start: 1958 Pneumococcal Vaccine : 65+ Years (1 - PCV) Pneumococcal Vaccine: 65+ Years (1 - PCV) [facility] Start: 1950 Screening for malign ant neoplasm of colon [facility] Payers Date Payer Category Payer Medicare [employer] MEDICARE ADVANTAGE [employer] MEDICARE [id number] 2019-Present [address] [address] [place] [address] [id number] 1959 Medicare [id number] 1950 Unknown [id number] [id number] 3 1950 Unknown [id number] 2.16.840.1.927073.3.579.2.59 3 1952 Unknown [id number] 2.16.840.1.703884.3.579.2.12 59 1952 Unknown [id number] 2.16.840.1.730891.3.579.2.12 59 1952 Unknown [id number] 2.16.840.1.210487.3.579.2.12 59 1952 Unknown [id number] 2.16.840.1.320006.3.579.2.12 59 1952 Unknown [id number] 2.16.840.1.145875.3.579.2.12 59 1952 Unknown [id number] 2.16.840.1.260333.3.579.2.12 59 1952 Unknown [id number] 2.16.840.1.349116.3.579.2.12 59 1952 Unknown [id number] 2.16.840.1.328394.3.579.2.12 59 1952 Unknown [id number] 2.16.840.1.592173.3.579.2.12 59 1952 Unknown [id number] 2.16.840.1.759280.3.579.2.12 59 1952 Unknown [id number] 2.16.840.1.674109.3.579.2.12 59 1952 Unknown [id number] 2.16.840.1.294610.3.579.2.12 59 1952 Unknown [id number] 2.16.840.1.367905.3.579.2.12 59 1952 Unknown [id number] 2.16.840.1.073250.3.579.2.12 59 1952 Unknown [id number] 2.16.840.1.464956.3.579.2.12 59 1952 Unknown [id number] 2.16.840.1.560029.3.579.2.12 59 1952 Unknown [id number] 2.16.840.1.672028.3.579.2.12 59 Social History Date Type Detail Facility Start: 02-14-1969 Tobacco smoking status FLIS Smokes t obacco daily [facility] Start: 02-14-1969 History of tobacco use Cigarette Smo ker [facility] Start: 08-10-2022 End: 02-10-2023 Cigarettes smoked current (pack per day) - Reported 1 [facility] Start: 02-10-2023 Tobacco use and exposure Smoke less tobacco non-user [facility] Start: 02-10-2023 Alcohol intake Ex-drinker (finding) [facility] Start: 08-10-2022 End: 02-10-2023 Alcohol Use Disorder Identification Test - Consumption [AUDIT-C] [facility] How often to you hav e a drink containing alcohol? Never [facility] How many standard dr inks containing alcohol do you have on a typical day? Patient does not drink [facility] Start: 08-15-2022 Tobacco Comment 11-20 cigarettes/day [facility] Start: 08-15-2022 Alcohol Comment coffee 7-10 cups a d ay [facility] Start: 1950 Sex Assigned At Not on file [facility] Start: 08-05-2022 Gender identity Identifies as male gender (finding) [facility] Medical Equipment Procedure Code Equipment Code Equipment Original Text Equi pment Identifier Dates USE STRIP TO FABIAN CK GLUCOSE ONCE DAILY [id number] History of Present illness Narrative 03-22-2023 Sarthak Franklin, PT - 03/22/2023 7:00 AM EST Note Date & Type Note Facility 03-22-2023 History of Presen t illness Narrative Physical Therapy Physical Therapy Treatment Visit Patient Name: Felisa Chowdhury Today's Date: 03/22/2023 Encounter Diagnoses Name Primary? Spinal stenosis of lumbar region at multiple levels Yes SI (sacroiliac) pain Visit number: 11 Supervised time: 40 min Total time: 60 min Precautions: previous back surgery 2 years ago, mild stroke about 15-20 years ago Subjective Pain: pt reports feeling pretty good this morning Overall progress: continues to have minimal discomfort at this time. Says he was able to do a lot of housework again this weekend and did not have much difficulty or pain. Treatment: Therapeutic Exercise: lumbar ROM, LE ROM/strength, and core strength per grid, x40' supervised / x5' unsupervised Modalities: MHP to L sided low back post session with ESTIM 15' in prone Assessment/Plan Progressing well with mobility and strength. Continues to report low pain levels in low back. Good form noted for all therex this morning. Pt has one more therapy visit scheduled for this Tuesday; plans to discharge with [facility] following this appointment. documented in this encounter [facility] History of Present illness Narrative 03-18-2023 Sarthak Franklin PT - 03/18/2023 7:00 AM EST Note Date & Type Note Facility 03-18-2023 History of Presen t illness Narrative Physical Therapy Physical Therapy Treatment Visit Patient Name: Felisa Chowdhury Today's Date: 03/18/2023 Encounter Diagnoses Name Primary? Spinal stenosis of lumbar region at multiple levels Yes SI (sacroiliac) pain Visit number: 10 Supervised time: 38 min Total time: 56 min Precautions: previous back surgery 2 years ago, mild stroke about 15-20 years ago Subjective Pain: says the pain today is not bad at all in his low back. Overall progress: PN done last session. Continues to report very minimal pain/discomfort at this time. Progressing well with overall mobility and core/LE strength. Started session 4' early Treatment: Therapeutic Exercise: lumbar ROM, LE ROM/strength, and core strength per grid, x38' supervised / x3' unsupervised Modalities: MHP to L sided low back post session with ESTIM 15' in prone Assessment/Plan Good tolerance to session. Added green ball for deadbugs to further progress core strength/stabilization. Verbal cueing to correct form for LLR to allow for proper muscle activation; good technique noted following 1-2 cues. Continue to progress as tolerated. documented in this encounter [facility] Evaluation note Note Date & Type Note Facility Evaluation note Diagnosis Spinal stenosis of lumbar region at multiple levels- Primary SI (sacroiliac) pain Disorders of sacrum documented in this encounter [facility] Evaluation note Note Date & Type Note Facility Evaluation note Diagnosis Spinal stenosis of lumbar region at multiple levels- Primary SI (sacroiliac) pain Disorders of sacrum documented in this encounter [facility] Summary Purpose Family History No Family History Records FoundNo Family History Records FoundNo Family History Records FoundNo Family History Records FoundNo Family History Records Found Advance Directives No Advanced Directives Records FoundNo Advanced Directives Records FoundNo Advanced Directives Records FoundNo Advanced Directives Records FoundNo Advanced Directives Records Found Additional Source Comments (unrecognized sect ion and content) No Status Records FoundNo Status Records FoundNo Status Records FoundNo Status Records FoundNo Status Records Found INFORMATION SOURCE (unrecogn ized section and content) DATE CREATED AUTHOR 07/12/2018 [facility] DATE CREATED AUTHOR AUTHOR'S ORGANIZ ATION 03/06/2019 [facility] DATE CREATED AUTHOR AUTHOR'S ORGANIZ ATION 02/03/2022 [facility] DATE CREATED AUTHOR AUTHOR'S ORGANIZ ATION 04/15/2022 [facility] DATE CREATED AUTHOR AUTHOR'S ORGANIZ ATION 08/12/2023 [facility] EPIC Care Teams (unrecognized sec tion and content) Seafood Clerk Relationship Specialty Start Date End Date Leonora Crowley DO [address] [place] [address] PCP - Humana 02/15/20 Leonora Crowley DO [address] [place] [address] PCP - General Family Medicine 06/25/22 Seafood Clerk Relationship Specialty Start Date End Date Leonora Crowley, DO [address] [place] [address] PCP - Humana 02/15/20 Carline Leonora M, DO [address] [place] [address] PCP - General Family Medicine 06/25/22 Seafood Clerk Relationship Specialty Start Date End Date Leonora Crowley, DO [address] [place] [address] PCP - Human 02/15/20 CourtneyTej gianghussain Gayle, DO [address] [place] [address] PCP - General Family Medicine 06/25/22 Reason for Visit (unrecogniz ed section and content) Specialty Diagnoses / Procedures Referred By Byron medina Referred To Contact Physical Therapy Diagnoses Spinal stenosis, lumbar region without neurogenic claudication Procedures [place] PHYSICAL THERAPY EVALUATION LOW COMPLEX 20 MINS Leonora Crowley, DO [address] [place] [address] Sarthak Franklin, DARYL Referral ID Status Reason Start Date Expiration Date Visits Requested Visits Authorized [id number] Authorized Consult and Treat 03/15/2023 04/15/2023 8 8 FOR RECORDS PERTAINING TO PATIENTS WHO ARE OR HAVE BEEN ENROLLED IN A CHEMICAL DEPENDENCY/SUBSTANCEABUSE PROGRAM, SOME INFORMATION MAY BE OMITTED. This clinical summary was aggregated from multiple sources. Caution should be exercised in using it in the provision of clinical care. This summary normalizes information from multiple sources, and as a consequence, information in this document may materially change the coding, format and clinical context of patient data. In addition, data may be omitted in some cases. CLINICAL DECISIONS SHOULD BE BASED ON THE PRIMARY CLINICAL RECORDS. [facility], [facility]. provides no warranty or guarantee of the accuracy or completeness of information in this document.
[2023-08-14 10:11] VITALS: BP 140/78; PULSE 80; TEMP 36.9; O2SAT 95; BMI 30.7
--- NOTE | 2023-08-14 10:14 | US_ITS ---
The [address] [address] Patient Name: FELISA NOBLE MRN: [id number] date: 1950 Sex: M Assigned Patient Location: ER Current Patient Location: ER Accession/Order Number: [id number] Exam Date: 08/14/2023 10:40 Report Date: 08/14/2023 12:59 At the request of: TRINH GALLAGHER Procedure: US venous doppler UE RT ULTRASOUND RIGHT UPPER EXTREMITY COLOR VENOUS DUPLEX HISTORY: Swelling. COMPARISON: None. PROCEDURE: Duplex ultrasound and Doppler images were obtained of the right upper extremity. FINDINGS: There is normal color flow and compressibility seen in the visualized deep venous structures of the right upper extremity with no evidence for thrombosis seen. There are normal venous Doppler waveforms. US/US venous doppler UE RT IMPRESSION: No evidence for DVT. Electronically authenticated by: FLORIDA EDWARDS Date: 08/14/2023 12:59
--- NOTE | 2023-08-14 10:16 | ED_ITS ---
HPI HPI - General Adult General Chief complaint: Extremity Injury, Upper Stated complaint: RIGHT WRIST PAIN, SWELLING Time Seen by Provider: 08/14/23 10:10 Source: patient Mode of arrival: walk-in Limitations: no limitations History of Present Illness HPI narrative: 72-year-old male presents for pain in the right wrist which goes all the way up his arm. It started 4 days ago and was not precipitated by any trauma, he did not fall. He had an x-ray at an urgent care center and was told it was negative and then 2 days ago he saw his family doctor. He has never had a blood clot. Related Data Home Medications ?Medication ?Instructions ?Recorded ?Confirmed aspirin 81 mg tablet,delayed 81 mg PO DAILY 08/14/23 08/14/23 release (Adult Aspirin Regimen) empagliflozin 25 mg tablet 25 mg PO DAILY 08/14/23 08/14/23 (Jardiance) lisinopril 20 mg tablet 20 mg PO DAILY 08/14/23 08/14/23 lovastatin 40 mg tablet 40 mg PO BEDTIME 08/14/23 08/14/23 meloxicam 15 mg tablet 15 mg PO DAILY 08/14/23 08/14/23 metformin 1,000 mg tablet 1,000 mg PO BID 08/14/23 08/14/23 ropinirole 3 mg tablet 4 mg PO DAILY 08/14/23 08/14/23 Previous Rx's ?Medication ?Instructions ?Recorded hydrocodone 5 mg-acetaminophen 325 1 tab PO Q6H PRN pain 5 days #20 08/14/23 mg tablet tabs Allergies Allergy/AdvReac Type Severity Reaction Status Date / Time No Known Drug Allergies Allergy Verified 12/15/22 02:54 Opioid HPI Opioid Management Most Recent Opioid Data: Last Pain Scale 0 08/14/23 11:39 Last ED Pain Assessment 08/14/23 11:39 Last MAR Pain Assessment 08/14/23 10:26 Review of Systems ROS Narrative A ten point review of systems is negative except as noted above. Exam Narrative Exam Narrative: Nurses note and vital signs reviewed and patient is not hypoxic. General: The patient appears well and in no apparent distress. Patient is resting comfortably on cart. Skin: Warm, dry, no pallor noted. There is no rash noted. Head: Normocephalic, atraumatic Eye: Normal conjunctiva, no drainage Ears, Nose, Mouth, and Throat: oral mucosa is moist. Nares patent. Cardiovascular: Regular Rate and Rhythm Respiratory: Patient is in no distress, no accessory muscle use, lungs are clear to auscultation, no wheezing, rales or rhonchi Back: non-tender GI: Soft and nontender Musculoskeletal: The patient has swelling in his right hand mildly and more so in the right wrist. He has some erythema and some tenderness up into the forearm area as well. Neurological: A&O, normal speech Psychiatric: Cooperative Constitutional Vital Signs, click to edit/add: Last Vital Signs Temp 98.4 F 08/14/23 10:11 Pulse 80 08/14/23 10:11 Resp 18 08/14/23 10:11 BP 113/68 08/14/23 11:40 Pulse Ox 95 08/14/23 10:11 O2 Del Method Room Air 08/14/23 10:11 Course Vital Signs Vital signs: Vital Signs Temperature 98.4 F 08/14/23 10:11 Pulse Rate 80 08/14/23 10:11 Respiratory Rate 18 08/14/23 10:11 Blood Pressure 140/78 08/14/23 10:11 Pulse Oximetry 95 08/14/23 10:11 Oxygen Delivery Method Room Air 08/14/23 10:11 Temperature 98.4 F 08/14/23 10:11 Pulse Rate 80 08/14/23 10:11 Respiratory Rate 18 08/14/23 10:11 Blood Pressure 113/68 08/14/23 11:40 Pulse Oximetry 95 08/14/23 10:11 Oxygen Delivery Method Room Air 08/14/23 10:11 Medical Decision Making [facility] Narrative Medical decision making narrative: Doppler shows no DVT. X-ray shows bone cyst or erosion in the scaphoid. He has an established orthopedist and will follow-up with him. He is feeling improved after being given IV pain medication here and he is prescribed [place]. Treatment diagnosis and follow-up were discussed with the patient and his . I have no suspicion of an infection. Differential Diagnosis Differential Diagnosis: DVT, fracture, arthritis Lab Data Lab results reviewed: Yes I reviewed the patient's lab results Labs: Lab Results 08/14/23 Range/Units 10:23 WBC 14.5 H (4.0-11.0) 10^3/uL RBC 5.18 (4.70-6.10) 10^6/uL Hgb 14.9 (14.0-18.0) g/dL Hct 45.1 (42.0-54.0) % MCV 87.1 (80.0-94.0) fL MCH 28.8 (25.9-34.0) pg MCHC 33.0 (29.9-35.2) g/dL RDW 13.7 (11.0-15.0) % Plt Count 160 (150-450) 10^3/uL MPV 11.0 (9.5-13.5) fL Neut % (Auto) 87.2 H (43.0-75.0) % Lymph % (Auto) 3.9 L (20.5-60.0) % [place] % (Auto) 8.5 (1.7-12.0) % Eos % (Auto) 0.0 L (0.9-7.0) % Baso % (Auto) 0.1 L (0.2-2.0) % Neut # (Auto) 12.7 H (1.4-6.5) 10^3/uL Lymph # (Auto) 0.6 L (1.2-3.8) 10^3/uL [place] # (Auto) 1.2 H (0.3-0.8) 10^3/uL Eos # (Auto) 0.0 (0.0-0.7) 10^3/uL Baso # (Auto) 0.0 (0.0-0.1) 10^3/uL Abs Immat Gran (auto) 0.05 H (0.00-0.03) 10^3/uL Imm/Tot Granulo (auto) 0.3 (0.0-0.5) % Sodium 136 (136-145) mmol/L Potassium 4.3 (3.5-5.1) mmol/L Chloride 100 (98-107) mmol/L Carbon Dioxide 21.2 (21.0-32.0) mmol/L Anion Gap 19.1 BUN 25.0 H (7.0-18.0) mg/dL Creatinine 1.23 (0.70-1.30) mg/dL Est GFR ( Amer) >60 (>=60) Est GFR (Non-Af Amer) 58 L (>=60) BUN/Creatinine Ratio 20.3 Glucose 250 H (74-106) mg/dL Calcium 9.3 (8.5-10.1) mg/dL Imaging Data Wrist x-ray: Radiologist's impression: ITS Impressions Venous Doppler Study 08/14/23 10:14 IMPRESSION: No evidence for DVT. Electronically authenticated by: FLORIDA Michelson DiagnosticsRICKI Date: 08/14/2023 12:59 Wrist X-Ray 08/14/23 10:48 IMPRESSION: No acute bony abnormality. 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 Electronically authenticated by: Pictorious Date: 08/14/2023 13:02 Discharge Plan Discharge Stand Alone Forms: Portal Instructions Chief Complaint: Extremity Injury, Upper Clinical Impression: Right wrist pain Patient Disposition: Home, Self-Care Time of Disposition Decision: 13:13 Condition: Good Mode of Transportation: Private Vehicle Prescriptions / Home Meds: New hydrocodone-acetaminophen 5-325 mg tablet 1 tab PO Q6H PRN (Reason: pain) 5 Days Qty: 20 0RF No Action metformin 1,000 mg tablet 1,000 mg PO BID aspirin [Adult Aspirin Regimen] 81 mg tablet,delayed release (DR/EC) 81 mg PO DAILY Jardiance 25 mg tablet 25 mg PO DAILY lisinopril 20 mg tablet 20 mg PO DAILY lovastatin 40 mg tablet 40 mg PO BEDTIME meloxicam 15 mg tablet 15 mg PO DAILY ropinirole 3 mg tablet 4 mg PO DAILY Print Language: Puerto Rican Instructions: Arthralgia (ED) Additional Instructions: Follow-up with Dr. Rucker Referrals: ASHELY CROWLEY [Primary Care Provider] - 1 week
[2023-08-14] MEDS: KETOROLAC TROMETHAMINE 30 MG/ML VIAL IVP (10:26)
[2023-08-14 10:32] LABS: Basophils Percent Auto 0.1 % (0.2-2.0); Hematocrit 45.1 % (42.0-54.0); Hemoglobin 14.9 g/dL (14.0-18.0); Immature Granulocytes Abs Auto 0.05 10^3/uL (0.00-0.03); Immature Granulocytes Pct Auto 0.3 % (0.0-0.5); Lymphocytes Absolute Auto 0.6 10^3/uL (1.2-3.8); Lymphocytes Percent Auto 3.9 % (20.5-60.0); Mean Corpuscular Hemoglobin 28.8 pg (25.9-34.0); Mean Corpuscular Volume 87.1 fL (80.0-94.0); Monocytes Absolute Auto 1.2 10^3/uL (0.3-0.8); Monocytes Percent Auto 8.5 % (1.7-12.0); Neutrophils Absolute Auto 12.7 10^3/uL (1.4-6.5); Neutrophils Percent Auto 87.2 % (43.0-75.0); Platelet Count 160 10^3/uL (150-450); Red Blood Count 5.18 10^6/uL (4.70-6.10); Red Cell Distribution Width 13.7 % (11.0-15.0); White Blood Count 14.5 10^3/uL (4.0-11.0)
[2023-08-14 10:44] LABS: Anion Gap 19.1; BUN Creatinine Ratio 20.3; Calcium 9.3 mg/dL (8.5-10.1); Carbon Dioxide 21.2 mmol/L (21.0-32.0); Chloride 100 mmol/L (98-107); Estimated GFR (African America >60 (>=60); Estimated GFR (Non-African Ame 58 (>=60); Glucose 250 mg/dL (74-106); Potassium 4.3 mmol/L (3.5-5.1); Sodium 136 mmol/L (136-145)
--- NOTE | 2023-08-14 10:48 | XR_ITS ---
The [place] [id number] Patient Name: FELISA NOBLE MRN: [id number] date: 1950 Sex: M Assigned Patient Location: ER Current Patient Location: ER Accession/Order Number: [id number] Exam Date: 08/14/2023 11:10 Report Date: 08/14/2023 13:02 At the request of: TRINH GALLAGHER Procedure: XR wrist RT min 3V RIGHT WRIST X-RAY, THREE VIEWS HISTORY: Pain. COMPARISON: None. FINDINGS: There is a large cyst or erosion in the right distal scaphoid. The distal radius and distal ulnar normal-appearing. There is no dislocation. There are very mild degenerative change of the right first carpometacarpal joint. XR/XR wrist RT min 3V IMPRESSION: No acute bony abnormality. 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 Electronically authenticated by: FLORIDA EDWARDS Date: 08/14/2023 13:02
[2023-08-14 11:40] VITALS: BP 113/68
[2023-08-14 13:22] VITALS: BP 115/74; PULSE 74; O2SAT 99
== END 2023-08-14 13:24 | disposition home or self-care (01) ==
PROVIDERS: Emergency Provider Emergency Medicine; PCP Family Medicine
DX: M25.531 Pain in right wrist (principal); M79.89 Other specified soft tissue disorders
CPT/HCPCS: 36415; 73110; 80048; 85025; 93971; 96374; 99285; J1885

== ENCOUNTER 2023-08-16 18:45 | Emergency (ER) | payer MEDICARE, SELFPAY ==
[2023-08-16] VITALS (10 sets, daily range): BP systolic 148–152; BP diastolic 64–79; PULSE 77–84; TEMP 36.8–37.3; O2SAT 92–97; BMI 31.0
--- OUTSIDE RECORDS SUMMARY | 2023-08-16 18:54 | XMS_ITS | CCD ---
Author Organization [facility] CliniSyny Care Team Providers Care Cardiac Cath Lab Radiology Technologist Name Role Phone CARLINE, DR LUND Admitting Unavailable PETZNICK, DR LUND Attending Unavailable PETZNICK, DR LUND Consulting Unavailable PETZNICK, DR LUND Attending Unavailable PETZNICK, DR LUND Consulting Unavailable PETZNICK, DR LUND Admitting Unavailable Petznick DO Leonora M Unavailable [phone] Petznick DO Leonora M Primary Care Provider [...] 2 diabetes mellitus without complication, unspecified whether terminal makeup operator insulin use (CMS/HCC) Take 1 tablet by [...] complication, without long-term current use of insulin (CMS/[facility]) Take 1 tablet (1,000 mg) by mouth [...] by Saleem Jordan on 04/13/2022 1435 Normal [facility] Specialist Reminderson 03-01-2019 Reminders - From: Lizeth Gee MA To: EU - Clinical; Sent: 02/09/2019 15:13:59 EST Show up: 02/23/2019 07:00:00 EST Subject: scheduled Renal US Due Date/Time: 03/02/2019 07:00:00 EST Reminder/Recall Pt is scheduled for Renal US on 02/19/19 [facility]. He does have a f/u scheduled 03/05/19 to review w/RWR. Renal US is now being done at [facility] on 02/26/19 @10am. No results in chart yet From: Miky OVIEDO, Mark Bernstein (EU - Clinical) To: Felisa MORRISON MD; Sent: 03/01/2019 11:12:29 EST Show up: 03/01/2019 11:12:00 EST Subject: RE: scheduled Renal US Please review Renal US done 02/26/2019 [facility] XR hip BI w [id number] 07-04-19 XR hip BI w [id number] [facility] Main [place] [address] [place] [address] XRay Report Signed Patient: Felisa Chowdhury JR MR#: [id number] : 1950 Acct:[id number] Age/Sex: 67 / M ADM Date: 07/03/18 Loc: [facility] Room: Type: [facility] Attending Dr: Leonora Crowley DO Ordering Provider: Leonora Crowley DO Date of Service: 07/03/18 XR/XR lumbar spine 2-3V*: [id number] ([id number]) XR/XR hip BI w PEL1V: [id number], [id number] ([id number]) XR/XR knee BI 3V: [id number], [id number] Copies to: Leonora Crowley DO CLINICAL DATA: [...] Tejal Moncada M.D.07/03/2018 3:15 PM Dictation Location: [facility] Transcribed By: [facility] 07/03/18 1515 Dictated By: Tejal Moncada MD 07/03/18 1508 Signed By: 07/03/18 1515 [facility] Encounters Encounter Date Encounter Type Care Provider Facility Start: 08-12-2023 End: 08-12-2023 ambulatory LEONORA CROWLEY Not Available Start: 08-11-2023 End: 08-11-2023 ambulatory YORDY SMILEY Not Available Start: 03-25-2023 End: 03-25-2023 ambulatory SARTHAK FRANKLIN Not Available Start: 03-22-2023 End: 03-22-2023 ambulatory Sarthak Franklin PT [facility] Comment on above: Spinal stenosis of l umbar region at multiple levels (Primary Dx); SI (sacroiliac) pain Start: 03-18-2023 Bamboo flowsheet Sarthak Rigoberto PT [facility] Start: 03-18-2023 Bamboo flowsheet Sarthak Rigoberto PT [facility] Start: 03-18-2023 End: 03-18-2023 ambulatory Sarthak Rigoberto PT [facility] Comment on above: Spinal stenosis of l umbar region at multiple levels (Primary Dx); SI (sacroiliac) pain Start: 03-15-2023 End: 03-15-2023 ambulatory SARTHAK RIGOBERTO Not Available Start: 03-11-2023 End: 03-11-2023 ambulatory SARTHAK RIGOBERTO Not Available Start: 03-08-2023 End: 03-08-2023 ambulatory SARTHAK RIGOBERTO Not Available Start: 03-04-2023 End: 03-04-2023 ambulatory SARTHKA RIGOBERTO Not Available Start: 03-01-2023 End: 03-01-2023 [...] Screening for malign ant neoplasm of colon [facility] Start: 02-12-2024 Urine screening for protein Diabetes: Urine Protein Screening [facility] Start: 08-12-2023 End: 08-12-2023 Patient encounter procedure 08/12/2023 8:15 AM EDT Office Visit [facility] [address] [place] [address] Leonora Crowley DO [address] [place] [address] [facility] [address] Start: 08-11-2023 Medicare Annual Well ness (AWV) Medicare Annual Wellness (AWV) [facility] Start: 05-12-2023 Hemoglobin A1c measurement Diabetes: Hemoglobin A1C [facility] Start: 03-25-2023 End: 03-25-2023 ambulatory 03/25/2023 7:00 AM EST Treatment [facility] [address] [place] [address] [facility] Franklin[facility] Start: 03-22-2023 End: 03-22-2023 ambulatory 03/22/2023 7:00 AM EST Treatment [facility] [address] [place] [address] [facility] Franklin[facility] Start: 03-18-2023 End: 03-18-2023 ambulatory 03/18/2023 7:00 AM EST Treatment [facility] [address] [place] [address] Sarthak Franklin, PT Spinal stenosis of lumbar region at multiple levels (Primary Dx); SI [facility]sacroiliac) [facility] Comment on above: Spinal stenosis of l umbar region at multiple levels (Primary Dx); SI (sacroiliac) pain Start: 10-15-2022 Influenza vaccination Influenza Vacc ine (#1) [facility] Start: 1962 Glaucoma screening Diabetes: R etinopathy Screening [facility] Start: 1958 Pneumococcal Vaccine : 65+ Years (1 - PCV) Pneumococcal Vaccine: 65+ Years (1 - PCV) [facility] Start: 1950 Screening for malign ant neoplasm of colon [facility] Payers Date Payer Category Payer Medicare HU[employer]NA MEDICARE ADVANTAGE HU[employer]NA MEDICARE [id number] 2019-Present [address] [address] [place] [address] [id number] 1959 Medicare [id number] 1950 Unknown [id number] [id number] 3 1952 Unknown [id number] 2.16.840.1.794786.3.579.2.59 3 1952 Unknown [id number] 2.16.840.1.437371.3.579.2.12 59 1952 Unknown [id number] 2.16.840.1.104752.3.579.2.12 59 1952 Unknown [id number] 2.16.840.1.316037.3.579.2.12 59 1952 Unknown [id number] 2.16.840.1.235333.3.579.2.12 59 1952 Unknown [id number] 2.16.840.1.159962.3.579.2.12 59 1952 Unknown [id number] 2.16.840.1.468714.3.579.2.12 59 1952 Unknown [id number] 2.16.840.1.207000.3.579.2.12 59 1952 Unknown [id number] 2.16.840.1.732789.3.579.2.12 59 1952 Unknown [id number] 2.16.840.1.127597.3.579.2.12 59 1952 Unknown [id number] 2.16.840.1.090564.3.579.2.12 59 1952 Unknown [id number] 2.16.840.1.638490.3.579.2.12 59 1952 Unknown [id number] 2.16.840.1.124485.3.579.2.12 59 1952 Unknown [id number] 2.16.840.1.816039.3.579.2.12 59 1952 Unknown [id number] 2.16.840.1.167786.3.579.2.12 59 1952 Unknown [id number] 2.16.840.1.260929.3.579.2.12 59 1952 Unknown [id number] 2.16.840.1.036986.3.579.2.12 59 1952 Unknown [id number] 2.16.840.1.222766.3.579.2.12 59 Social History Date Type Detail Facility Start: 02-14-1969 Tobacco smoking status COIS Smokes t obacco daily [facility] Start: 02-14-1969 History of tobacco use Cigarette Smo ker [facility] Start: 08-10-2022 End: 02-10-2023 Cigarettes smoked current (pack per day) - Reported 1 [facility] Start: 02-10-2023 Tobacco use and exposure Smoke less tobacco non-user [facility] Start: 02-10-2023 Alcohol intake Ex-drinker (finding) [facility] Start: 08-10-2022 End: 02-10-2023 Alcohol Use Disorder Identification Test - Consumption [AUDIT-C] [facility] How often to you hav e a drink containing alcohol? Never [facility] How many standard dr inks containing alcohol do you have on a typical day? Patient does not drink [facility] Start: 08-15-2022 Tobacco Comment 11-20 cigarettes/day [facility] Start: 08-15-2022 Alcohol Comment coffee 7-10 cups a d ay [facility] Start: 1950 Sex Assigned At Not on file [facility] Start: 08-05-2022 Gender identity Identifies as male gender (finding) [facility] Medical Equipment Procedure Code Equipment Code Equipment Original Text Equi pment Identifier Dates USE STRIP TO FABIAN CK GLUCOSE ONCE DAILY [id number] History of Present illness Narrative 03-22-2023 Sarthak [...] for this Tuesday; plans to discharge with [facility] following this appointment. documented in this encounter [...] progress as tolerated. documented in this encounter [facility] Evaluation note Note Date & Type Note Facility Evaluation note Diagnosis Spinal stenosis of lumbar region at multiple levels- Primary SI (sacroiliac) pain Disorders of sacrum documented in this encounter [facility] Evaluation note Note Date & Type Note Facility Evaluation note Diagnosis Spinal stenosis of lumbar region at multiple levels- Primary SI (sacroiliac) pain Disorders of sacrum documented in this encounter [facility] Summary Purpose Family History No Family [...] section and content) DATE CREATED AUTHOR 07/12/2018 [facility] DATE CREATED AUTHOR AUTHOR'S ORGANIZ ATION 03/06/2019 [facility] DATE CREATED AUTHOR AUTHOR'S ORGANIZ ATION 02/03/2022 [facility] DATE CREATED AUTHOR AUTHOR'S ORGANIZ ATION 04/15/2022 [facility] dical Specialist DATE CREATED AUTHOR AUTHOR'S ORGANIZ ATION 08/15/2023 [facility] dical Specialists EPIC Care Teams (unrecognized sec tion and content) Cardiac Cath Lab Radiology Technologist Relationship Specialty Start Date End Date Leonora Crowley DO [address] [place] [address] PCP - Humana 02/15/20 Leonora Crowley DO [address] [place] [address] PCP - General Family Medicine 06/25/22 Cardiac Cath Lab Radiology Technologist Relationship Specialty Start Date End Date Leonora Crowley, DO [address] [place] [address] PCP - Humana 02/15/20 Carline Leonora M, DO [address] [place] [address] PCP - General Family Medicine 06/25/22 Cardiac Cath Lab Radiology Technologist Relationship Specialty Start Date End Date Leonora Crowley, DO [address] [place] [address] PCP - Human 02/15/20 CourtneyTej gianghussain Gayle, DO [address] [place] [address] PCP - General Family Medicine 06/25/22 Reason for Visit (unrecogniz ed section and content) Specialty Diagnoses / Procedures Referred By Byron medina Referred To Contact Physical Therapy Diagnoses Spinal stenosis, lumbar region without neurogenic claudication Procedures [place] PHYSICAL THERAPY EVALUATION LOW COMPLEX 20 MINS Leonora Crowley, DO [address] [place] [address] Sarthak Franklin, DARYL Referral ID Status Reason Start Date Expiration Date Visits Requested Visits Authorized [id number] Authorized Consult and Treat 03/15/2023 04/15/2023 8 [...] BE BASED ON THE PRIMARY CLINICAL RECORDS. [facility], [facility]. provides no warranty or guarantee of the accuracy or completeness of information in this document.
--- NOTE | 2023-08-16 19:03 | CT_ITS ---
[address] [address] Patient Name: FELISA NOBLE MRN: [id number] date: 1950 Sex: M Assigned Patient Location: ER Current Patient Location: ER Accession/Order Number: [id number] Exam Date: 08/16/2023 19:25 Report Date: 08/16/2023 20:08 At the request of: STEVEN MITCHELL Procedure: CT stroke head/brain wo con EXAMINATION: CT stroke head/brain wo con, 08/16/2023 7:25 PM EDT HISTORY: Confusion COMPARISON: None. TECHNIQUE: CT scan of the head was performed without IV contrast. CT dose reduction technique was used, including Automated Exposure Control. FINDINGS: BRAIN PARENCHYMA/CSF SPACES: Ventricles are normal in size for age. There is no hemorrhage, mass effect or midline shift. There is atherosclerotic calcification of the bilateral carotid arteries. PARANASAL SINUSES: Mild mucosal thickening in the ethmoid air cells consistent with chronic sinusitis. SKULL BASE AND CALVARIUM: Normal. EXTRACRANIAL SOFT TISSUES: Normal. CT/CT stroke head/brain wo con IMPRESSION: 1. No acute intracranial abnormality. 2. Atherosclerotic calcification. Electronically authenticated by: FATOU MIRELES Date: 08/16/2023 20:08
--- NOTE | 2023-08-16 19:03 | ECG_ITS ---
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
--- NOTE | 2023-08-16 19:03 | XR_ITS ---
The [address] [address] Patient Name: FELISA NOBLE MRN: [id number] date: 1950 Sex: M Assigned Patient Location: ER Current Patient Location: ER Accession/Order Number: [id number] Exam Date: 08/16/2023 19:20 Report Date: 08/16/2023 20:34 At the request of: STEVEN MITCHELL Procedure: XR chest 1V EXAMINATION:XR chest 1V INDICATION:Shortness of breath COMPARISON:None TECHNIQUE:A single frontal view of the chest is submitted. FINDINGS: The cardiac silhouette is enlarged however may be accentuated due to the technique of the examination. The pulmonary vascularity is within normal limits. The lungs are clear based on chest radiography. There is no costophrenic angle blunting. XR/XR chest 1V IMPRESSION: No acute cardiopulmonary process in the chest. Electronically authenticated by: MAXIMO BRYAN Date: 08/16/2023 20:34
--- NOTE | 2023-08-16 19:05 | ED.GENADUL1 ---
HPI HPI - General Adult General Chief complaint: Extremity Problem, Nontraumatic Stated complaint: Upper Injury Time Seen by Provider: 08/16/23 18:51 Source: patient Mode of arrival: Wheelchair History of Present Illness HPI narrative: Patient is a 72-year-old male who returns to the emergency department for evaluation of pain and swelling in the right wrist. He was seen in this emergency department 2 days ago after he injured his right wrist lifting a frozen object out of the freezer. At that time he states he may have twisted his wrist but felt a pop in the dorsum of the right wrist. He was initially seen at urgent care and then seen in this emergency department 2 days ago where he had repeat x-rays and an ultrasound of the right upper extremity performed. The studies were negative and the patient has an orthopedic appointment tomorrow morning at 10 AM. Patient's states she brought him back to the emergency department because the right wrist continues to be swollen and painful. He has not been wearing the wrist splint because it was too tight with the swelling. He arrives in a right arm sling from a previous shoulder surgery. further complains that earlier today the patient seemed confused for a very brief period of time and she was concerned about his breathing. Patient's states that she gave him a pain medication, he attempted to drink water out of an ashtray and she thought that he seemed confused. He has not had any slurred speech, facial drooping, unilateral weakness. Patient is a regular smoker and denies any history of COPD. He has no chest pain and states he does not feel short of breath at this time. Related Data Home Medications ?Medication ?Instructions ?Recorded ?Confirmed aspirin 81 mg tablet,delayed 81 mg PO DAILY 08/14/23 08/14/23 release (Adult Aspirin Regimen) empagliflozin 25 mg tablet 25 mg PO DAILY 08/14/23 08/14/23 (Jardiance) lisinopril 20 mg tablet 20 mg PO DAILY 08/14/23 08/14/23 lovastatin 40 mg tablet 40 mg PO BEDTIME 08/14/23 08/14/23 meloxicam 15 mg tablet 15 mg PO DAILY 08/14/23 08/14/23 metformin 1,000 mg tablet 1,000 mg PO BID 08/14/23 08/14/23 ropinirole 3 mg tablet 4 mg PO DAILY 08/14/23 08/14/23 Previous Rx's ?Medication ?Instructions ?Recorded hydrocodone 5 mg-acetaminophen 325 1 tab PO Q6H PRN pain 5 days #20 08/14/23 mg tablet tabs albuterol sulfate 90 mcg/actuation 2 inh inhalation Q4H PRN shortness 08/16/23 aerosol inhaler of breath or wheezing #8.5 grams amoxicillin 875 mg-potassium 1 tab PO Q12H #20 tabs 08/16/23 clavulanate 125 mg tablet ondansetron 4 mg disintegrating 4 mg PO Q6H PRN nausea and 08/16/23 tablet vomiting #12 tabs prednisone 20 mg tablet 40 mg (2 x 20 mg) PO DAILY 3 days 08/16/23 #6 tabs Allergies Allergy/AdvReac Type Severity Reaction Status Date / Time No Known Drug Allergies Allergy Verified 12/15/22 02:54 Opioid HPI Opioid Management Most Recent Opioid Data: Last Pain Scale 10 08/16/23 19:34 Last ED Pain Assessment 08/14/23 11:39 Last MAR Pain Assessment 08/16/23 19:34 Review of Systems ROS Constitutional Denies: fever or chills Eyes Denies: change in vision Ears, nose, mouth, and throat Denies: throat pain or nasal congestion Respiratory Denies: shortness of breath Gastrointestinal Denies: nausea or vomiting Musculoskeletal Denies: back pain Integumentary/Breast Denies: rash Neurological Denies: headache Hematologic/Lymphatic Denies: easy bruising or easy bleeding Exam Narrative Exam Narrative: Gen.: Awake, alert, in no distress Head: Normocephalic, atraumatic ENT: Moist mucous membranes Respiratory: No respiratory distress, Inspiratory and expiratory wheezing Cardio: Regular rate and rhythm Extremities: Moves extremities equally Psych: Normal mood and affect Neuro: No focal neuro deficit Skin: Warm, dry, intact Constitutional Vital Signs, click to edit/add: Last Vital Signs Temp 98.2 F 08/16/23 20:20 Pulse 81 08/16/23 20:20 Resp 18 08/16/23 20:20 BP 152/64 H 08/16/23 18:50 Pulse Ox 95 08/16/23 20:20 O2 Del Method Room Air 08/16/23 19:43 Course Vital Signs Vital signs: Vital Signs Temperature 99.1 F 08/16/23 18:50 Pulse Rate 77 08/16/23 18:50 Respiratory Rate 20 08/16/23 18:50 Blood Pressure 152/64 H 08/16/23 18:50 Pulse Oximetry 92 L 08/16/23 18:50 Temperature 98.2 F 08/16/23 20:20 Pulse Rate 81 08/16/23 20:20 Respiratory Rate 18 08/16/23 20:20 Blood Pressure 152/64 H 08/16/23 18:50 Pulse Oximetry 95 08/16/23 20:20 Oxygen Delivery Method Room Air 08/16/23 19:43 Medical Decision Making MDM Narrative Medical decision making narrative: Based on the patient's vague complaints of confusion earlier in the day and shortness of breath earlier in the day, full workup was performed. Head CT and chest x-ray are normal per the radiologist. Patient was found to be wheezing and was given a breathing treatment, I suspect the patient has undiagnosed COPD given his extensive history of smoking. BNP is elevated but the patient has no peripheral edema or pulmonary edema on the chest x-ray. He was treated for pain in the ER, labs show elevated uric acid and inflammatory markers. Patient was reevaluated by attending physician. We will cover with antibiotics for a possible septic arthritis given the presentation of the patient's warmth and swelling to the wrist, although he has no pain out of proportion on exam and this may represent inflammatory arthritis. He was given low-dose steroids for the next 3 days in addition to Augmentin. He was encouraged to keep his appointment tomorrow morning with the orthopedic office. His white blood cell count has decreased today. He has no fever or tachycardia. Return to the emergency department if symptoms change or worsen. SHARED APC VISIT, PHYSICIAN ATTESTATION: [id number] I performed a substantive part of the MDM during the patient?s E/M visit. I personally evaluated and examined the patient. I personally made or approved the documented management plan and acknowledge its risk of complications. Medical Records Medical records reviewed: Yes I reviewed the patient's medical records Lab Data Lab results reviewed: Yes I reviewed the patient's lab results Labs: Lab Results 08/16/23 08/16/23 Range/Units 19:21 20:52 WBC 12.9 H (4.0-11.0) 10^3/uL RBC 4.66 L (4.70-6.10) 10^6/uL Hgb 13.1 L (14.0-18.0) g/dL Hct 41.6 L (42.0-54.0) % MCV 89.3 (80.0-94.0) fL MCH 28.1 (25.9-34.0) pg MCHC 31.5 (29.9-35.2) g/dL RDW 13.9 (11.0-15.0) % Plt Count 167 (150-450) 10^3/uL MPV 11.0 (9.5-13.5) fL Neut % (Auto) 87.4 H (43.0-75.0) % Lymph % (Auto) 2.3 L (20.5-60.0) % [place] % (Auto) 9.4 (1.7-12.0) % Eos % (Auto) 0.2 L (0.9-7.0) % Baso % (Auto) 0.2 (0.2-2.0) % Neut # (Auto) 11.3 H (1.4-6.5) 10^3/uL Lymph # (Auto) 0.3 L (1.2-3.8) 10^3/uL [place] # (Auto) 1.2 H (0.3-0.8) 10^3/uL Eos # (Auto) 0.0 (0.0-0.7) 10^3/uL Baso # (Auto) 0.0 (0.0-0.1) 10^3/uL Abs Immat Gran (auto) 0.06 H (0.00-0.03) 10^3/uL Imm/Tot Granulo (auto) 0.5 (0.0-0.5) % ESR >130 H (<=20) mm/hr PT 10.9 (9.0-11.6) sec INR 1.03 VBG pH 7.464 H (7.330-7.430) VBG pCO2 29.0 L (40.0-52.0) mmHg Sodium 131 L (136-145) mmol/L Potassium 4.4 (3.5-5.1) mmol/L Chloride 96 L (98-107) mmol/L Carbon Dioxide 22.2 (21.0-32.0) mmol/L Anion Gap 17.2 BUN 33.0 H (7.0-18.0) mg/dL Creatinine 1.64 H (0.70-1.30) mg/dL Est GFR ( Amer) 51 L (>=60) Est GFR (Non-Af Amer) 42 L (>=60) BUN/Creatinine Ratio 20.1 Glucose 244 H (74-106) mg/dL Uric Acid 7.5 H (3.5-7.2) mg/dL Calcium 8.9 (8.5-10.1) mg/dL Total Bilirubin 1.2 H (0.2-1.0) mg/dL AST 25 (15-37) U/L ALT 31 (16-63) U/L Alkaline Phosphatase 122 H (46-116) U/L Troponin I High Sens 52.7 (4.0-76.1) pg/mL C-Reactive Protein 21.24 H (<=0.50) mg/dL NT-Pro-B Natriuret Pep 2610.0 H* (<=900.0) pg/mL Total Protein 7.4 (6.4-8.2) g/dL Albumin 2.6 L (3.4-5.0) g/dL Globulin 4.8 g/dL Albumin/Globulin Ratio 0.5 Urine Color Yellow (YELLOW) Urine Clarity Clear (CLEAR) Urine pH 5.5 (5.0-9.0) Ur Specific [place] 1.010 (1.005-1.025) Urine Protein Trace (NEG/TRACE) mg/dL Urine Glucose (UA) >=1000 A (NEGATIVE) mg/dL Urine Ketones Negative (NEGATIVE) mg/dL Urine Occult Blood Small A (NEGATIVE) Urine Nitrite Negative (NEGATIVE) Urine Bilirubin Negative (NEGATIVE) Urine Urobilinogen 1.0 (0.2-1.0) EU/dL Ur Leukocyte Esterase Negative (NEGATIVE) Urine RBC 0-2 (0-2) #/HPF Urine WBC 0-2 A (NONE SEEN) #/HPF Ur Squamous Epith Cells None seen (NONE/RARE) #/LPF Urine Crystals None seen (None Seen) #/HPF Amorphous Sediment Moderate Urine Bacteria None seen (NONE SEEN) #/HPF Urine Casts Seen A (NONE SEEN) #/LPF Coarse Granular Casts Few Urine Mucus Small A (NONE SEEN) Ur Culture Indicated? No Imaging Data Chest x-ray: Attestation: I have reviewed the pertinent imaging results. Radiologist's impression: ITS Impressions Brain CT 08/16/23 19:03 IMPRESSION: 1. No acute intracranial abnormality. 2. Atherosclerotic calcification. Electronically authenticated by: FATOU MIRELES Date: 08/16/2023 20:08 Chest X-Ray 08/16/23 19:03 IMPRESSION: No acute cardiopulmonary process in the chest. Electronically authenticated by: MAXIMO BRYAN Date: 08/16/2023 20:34 ECG Data Attestation: I personally reviewed and interpreted this ECG as follows: (Normal sinus rhythm at a rate of 79, no acute ST elevation, occasional ectopy. EKG reviewed by attending physician) Discharge Plan Discharge Stand Alone Forms: Portal Instructions Chief Complaint: Extremity Problem, Nontraumatic Clinical Impression: Right wrist pain, Gout Patient Disposition: Home, Self-Care Time of Disposition Decision: 21:05 Condition: Good Prescriptions / Home Meds: New amoxicillin-pot clavulanate 875-125 mg tablet 1 tab PO Q12H Qty: 20 0RF prednisone 20 mg tablet 40 mg PO DAILY 3 Days Qty: 6 0RF albuterol sulfate 90 mcg/actuation HFA aerosol inhaler 2 inh inhalation Q4H PRN (Reason: shortness of breath or wheezing) Qty: 8.5 0RF ondansetron 4 mg tablet,disintegrating 4 mg PO Q6H PRN (Reason: nausea and vomiting) Qty: 12 0RF No Action metformin 1,000 mg tablet 1,000 mg PO BID aspirin [Adult Aspirin Regimen] 81 mg tablet,delayed release (DR/EC) 81 mg PO DAILY Jardiance 25 mg tablet 25 mg PO DAILY lisinopril 20 mg tablet 20 mg PO DAILY lovastatin 40 mg tablet 40 mg PO BEDTIME meloxicam 15 mg tablet 15 mg PO DAILY ropinirole 3 mg tablet 4 mg PO DAILY hydrocodone-acetaminophen 5-325 mg tablet 1 tab PO Q6H PRN (Reason: pain) 5 Days Qty: 20 0RF Print Language: Kiswahili Instructions: Gout (ED) Referrals: ASHELY CROWLEY [Primary Care Provider] - 1 week Cristopher Rucker MD [Physician] - 08/17/23
[2023-08-16 19:32] LABS: pH VBG 7.464 (7.330-7.430)
[2023-08-16 19:33] LABS: Basophils Percent Auto 0.2 % (0.2-2.0); Eosinophils Percent Auto 0.2 % (0.9-7.0); Hematocrit 41.6 % (42.0-54.0); Hemoglobin 13.1 g/dL (14.0-18.0); Immature Granulocytes Abs Auto 0.06 10^3/uL (0.00-0.03); Immature Granulocytes Pct Auto 0.5 % (0.0-0.5); Lymphocytes Absolute Auto 0.3 10^3/uL (1.2-3.8); Lymphocytes Percent Auto 2.3 % (20.5-60.0); Mean Corpuscular HGB Conc 31.5 g/dL (29.9-35.2); Mean Corpuscular Hemoglobin 28.1 pg (25.9-34.0); Mean Corpuscular Volume 89.3 fL (80.0-94.0); Monocytes Absolute Auto 1.2 10^3/uL (0.3-0.8); Monocytes Percent Auto 9.4 % (1.7-12.0); Neutrophils Absolute Auto 11.3 10^3/uL (1.4-6.5); Neutrophils Percent Auto 87.4 % (43.0-75.0); Platelet Count 167 10^3/uL (150-450); Red Blood Count 4.66 10^6/uL (4.70-6.10); Red Cell Distribution Width 13.9 % (11.0-15.0); White Blood Count 12.9 10^3/uL (4.0-11.0)
[2023-08-16] MEDS: KETOROLAC TROMETHAMINE 30 MG/ML VIAL 15 MG IVP (19:34)
[2023-08-16] MEDS: 0.9 % SODIUM CHLORIDE 1,000 ML 999 ML IV (19:34)
[2023-08-16] MEDS: OXYCODONE HCL/ACETAMINOPHEN 5MG/325MG 1 TAB PO (19:34)
[2023-08-16] MEDS: ALBUTEROL SULFATE 2.5 MG/3 ML VIAL NEB IH (19:35)
[2023-08-16 19:38] LABS: Erythrocyte Sedimentation Rate >130 mm/hr (<=20)
[2023-08-16 19:48] LABS: INR 1.03; Prothrombin Time 10.9 sec (9.0-11.6)
[2023-08-16 19:56] LABS: Alanine Aminotransferase 31 U/L (16-63); Albumin Globulin Ratio 0.5; Albumin Level 2.6 g/dL (3.4-5.0); Alkaline Phosphatase 122 U/L (46-116); Anion Gap 17.2; Aspartate Amino Transferase 25 U/L (15-37); BUN Creatinine Ratio 20.1; Bilirubin Total 1.2 mg/dL (0.2-1.0); C Reactive Protein 21.24 mg/dL (<=0.50); Calcium 8.9 mg/dL (8.5-10.1); Carbon Dioxide 22.2 mmol/L (21.0-32.0); Chloride 96 mmol/L (98-107); Estimated GFR (African America 51 (>=60); Estimated GFR (Non-African Ame 42 (>=60); Globulin 4.8 g/dL; Glucose 244 mg/dL (74-106); Potassium 4.4 mmol/L (3.5-5.1); Sodium 131 mmol/L (136-145); Total Protein 7.4 g/dL (6.4-8.2); Troponin I High Sensitivity 52.7 pg/mL (4.0-76.1)
[2023-08-16 20:36] LABS: Uric Acid 7.5 mg/dL (3.5-7.2)
[2023-08-16 20:58] LABS: Bilirubin Urine NEGATIVE (NEGATIVE); Blood Urine SMALL (NEGATIVE); Clarity Urine CLEAR (CLEAR); Color Urine YELLOW (YELLOW); Glucose Urine UA >=1000 mg/dL (NEGATIVE); Ketones Urine NEGATIVE (NEGATIVE); Leukocyte Esterase Urine NEGATIVE (NEGATIVE); Nitrite Urine NEGATIVE (NEGATIVE); Protein Urine TRACE mg/dL (NEG/TRACE); pH Urine 5.5 (5.0-9.0)
[2023-08-16 21:00] LABS: Urine Microscopic Indicated YES
[2023-08-16 21:07] LABS: Amorphous Sediment Urine MODERATE; Bacteria Urine NONE SEEN #/HPF (NONE SEEN); Cast Seen? SEEN #/LPF (NONE SEEN); Coarse Granular Casts Urine FEW; Crystals Seen? None Seen #/HPF (None Seen); Mucus Urine SMALL (NONE SEEN); RBC Urine 0-2 #/HPF (0-2); Squamous Epithelial Cell Urine NONE SEEN #/LPF (NONE/RARE); WBC Urine 0-2 #/HPF (NONE SEEN)
[2023-08-16 21:08] LABS: Urine Culture Indicated NO
[2023-08-16] MEDS: PREDNISONE 20 MG TABLET 40 MG PO (21:15)
[2023-08-16] MEDS: OXYCODONE HCL/ACETAMINOPHEN 5MG/325MG 2 TAB PO (21:15)
[2023-08-16] MEDS: AMOXICILLIN/POTASSIUM CLAV 1 TAB TABLET PO (21:15)
== END 2023-08-16 21:25 | disposition home or self-care (01) ==
PROVIDERS: Physician Assistant; Emergency Provider Emergency Medicine; PCP Family Medicine
DX: M25.531 Pain in right wrist (principal); M10.9 Gout, unspecified; R41.0 Disorientation, unspecified; R06.02 Shortness of breath; F17.200 Nicotine dependence, unspecified, uncomplicated
CPT/HCPCS: 36415; 70450; 71045; 80053; 81001; 82800; 83880; 84484; 84550; 85025; 85610; 85652; 86140; 93005; 94640; 96374; 99285; J1885; J7512